=== PATIENT | female | born 1985 | race Caucasian/White ===

== ENCOUNTER 2017-02-10 17:31 | Emergency (ER) | payer SELFPAY ==
[2017-02-10 17:48] VITALS: BMI 24.8
[2017-02-10 17:50] VITALS: BP 104/71; PULSE 70; RESP 16; TEMP 98.7; O2SAT 99
[2017-02-10] MEDS ORDERED: Sodium Chloride 0.9% 1,000 ML IV STA (18:03)
[2017-02-10 18:23] LABS: ADD MANUAL DIFF? NO
[2017-02-10 18:42] LABS: ALKALINE PHOSPHATASE 67 U/L (38-133); ALT/SGPT 26 U/L (7-56); AMYLASE 64 U/L (35-125); AST/SGOT 23 U/L (15-39); BILIRUBIN,TOTAL 0.8 mg/dL (0.2-1.3); BLOOD UREA NITROGEN 4 mg/dL (7-21); CARBON DIOXIDE 25 mmol/L (21-33); CHLORIDE 101 mmol/L (98-107); GFR AFRICAN-AMERICAN > 60; GLUCOSE,RANDOM 86 mg/dL (70-110); LIPASE 62 U/L (23-300); POTASSIUM 3.9 mmol/L (3.6-5.0); SODIUM 135 mmol/L (132-148); TOTAL PROTEIN 8.4 g/dL (5.8-8.3)
--- NOTE | 2017-02-10 18:43 | ED PDOC ---
Arrival/HPI - General Chief Complaint: Abdominal Pain Time Seen by Provider: 02/10/17 18:02 Historian: Patient - History of Present Illness Narrative History of Present Illness (Text): 02/10/17 18:41 31-year-old female presents today with a one-week history of upper and lower abdominal pain with nausea no vomiting or diarrhea. No chest pain or shortness of breath. Patient states her last period was the beginning of January. Patient states she has had 3 pregnancies in the past. She is unsure if she is at current time. She denies vaginal bleeding or vaginal discharge. No fevers or chills. Complaining of urinary frequency occasionally. No other complaints Past Medical History - Provider Review Nursing Documentation Reviewed: Yes - Travel History Have you recently traveled outside [place] w/in the past 3 mons?: No - Past History Past History: No Previous - Infectious Disease Hx of Infectious Diseases: None - Tetanus Immunization Tetanus Immunization: Unknown - Cardiac Hx Cardiac Disorders: No - Pulmonary Hx Respiratory Disorders: No - Neurological Hx Neurological Disorder: No - HEENT Hx HEENT Disorder: No - Renal Hx Renal Disorder: No - Endocrine/Metabolic Hx Endocrine Disorders: No - Hematological/Oncological Hx Blood Disorders: No - Integumentary Hx Dermatological Disorder: No - Musculoskeletal/Rheumatological Hx Musculoskeletal Disorders: No - Gastrointestinal Hx Gastrointestinal Disorders: Yes Hx Gall Bladder Disease: Yes - Genitourinary/Gynecological Hx Genitourinary Disorders: No - Psychiatric Hx Psychophysiologic Disorder: No Hx Substance Use: No - Anesthesia Hx Anesthesia: No Hx Anesthesia Reactions: No Hx Malignant Hyperthermia: No Family/Social History - Physician Review Nursing Documentation Reviewed: Yes Family/Social History: Unknown Family HX Smoking Status: Never Smoked Hx Alcohol Use: No Hx Substance Use: No Allergies/Home Meds Allergies/Adverse Reactions: Allergies No Known Allergies Allergy (Verified 08/01/15 09:37) Review of Systems - Review of Systems Constitutional: absent: Fatigue, Fevers Respiratory: absent: SOB, Cough Cardiovascular: absent: Chest Pain, Palpitations Gastrointestinal: Abdominal Pain, Nausea. absent: Constipation, Diarrhea, Vomiting Genitourinary Female: Dysuria, Frequency. absent: Urine Output Changes, Vaginal Bleeding, Vaginal Discharge Musculoskeletal: Back Pain. absent: Arthralgias, Neck Pain Skin: absent: Rash, Pruritis Neurological: absent: Headache Psychiatric: absent: Anxiety Physical Exam Vital Signs Reviewed: Yes Vital Signs Temp Pulse Resp BP Pulse Ox 02/10/17 17:48 98.7 F 70 16 104/71 99 Temperature: Afebrile Blood Pressure: Normal Pulse: Regular Respiratory Rate: Normal Appearance: Positive for: Well-Appearing, Non-Toxic, Comfortable Pain Distress: None Mental Status: Positive for: Alert and Oriented X 3 - Systems Exam Head: Present: Atraumatic Neck: Present: Normal Range of Motion Respiratory/Chest: Present: Clear to Auscultation, Good Air Exchange. No: Respiratory Distress, Accessory Muscle Use Cardiovascular: Present: Regular Rate and Rhythm, Normal S1, S2. No: Murmurs Abdomen: Present: Tenderness (minimal lower abdominal tenderness. ), Normal Bowel Sounds. No: Distention, Peritoneal Signs, Rebound, Guarding Genitourinary/Pelvic Exam: Present: Normal External Genitalia, Cervical os Closed, Other (chaparoned by cyndee chan). No: Vaginal Discharge, Vaginal Bleeding, Vaginal Lesions, Adenexal Tenderness, Adenexal Mass, Cervical Motion Tendernes, Odor Back: Present: Normal Inspection. No: CVA Tenderness, Midline Tenderness, Paraspinal Tenderness Upper Extremity: Present: Normal Inspection Neurological: Present: GCS=15 Skin: Present: Warm, Dry, Normal Color. No: Rashes Psychiatric: Present: Alert, Oriented x 3 Medical Decision Making ED Course and Treatment: 02/10/17 18:43 Patient is nontoxic well appearing in no distress. Vital signs are stable. Patient presented with a one-week history of abdominal pain with nausea and no vomiting or diarrhea test is positive in the emergency room CBC: wnl CMP: wnl Beta hC TYPE AND SCREEN: O+ Urinalysis: small leukocytes, bacteria, Ultrasound: FINDINGS: Uterus: Measures 12.5 x 5.7 x 9 cm. Single intrauterine gestation identified. pole and yolk sac are seen. Estimated gestational age is 9 weeks, 4 days, based on the crown rump length. heart motion visualized, at 164 beats per minute. [place]-shaped hypoechoic area seen adjacent to the gestational sac, suspicious for a subchorionic hemorrhage. This measures up to 1.4 x 0.4 x 1.1 cm in size. Cervix appears closed. Right ovary: Within normal limits in appearance, containing multiple follicles. Measures 2.7 x 2.3 x 2.0 cm. Flow seen in the right ovary on color and Doppler imaging, with no evidence of torsion. Left ovary: Within normal limits in appearance, containing multiple follicles. Measures 3.1 2.3 x 1.8 cm. Flow seen in the left ovary on color and Doppler imaging, with no evidence of torsion. Cul de sac: None seen. IMPRESSION: 9 week, 4 day intrauterine with heart motion. Subchorionic hemorrhage identified. Followup is recommended. Discussed all the results the patient. advised f/u with the retort furnace helper within the next 2 days. advised immediate return if symptoms worsen,persist or if new symptoms develop. all information translated using airport attendant dictaphone mechanic # [id number]; patient is currently taking vitamins and she was advised to continue to do so. She was advised to return immediately if abdominal pain worsens or she developed vaginal bleeding. Patient verbalizes understanding of discharge instructions and need for immediate followup. Impression: threatened Tylenol every 4 hours as needed for pain Increase fluids Followup with the eye dropper assembler within the next 2 days nitrofurantoin; 1 tablet twice daily x 10 days. Return immediately if symptoms worsen persist or if new symptoms develop: High fevers, heavy bleeding, severe abdominal pain, vomiting, diarrhea, dizziness or weakness or any other concerning symptoms develop. - Lab Interpretations Lab Results: 02/10/17 18:00 02/10/17 18:00 Lab Results 02/10/17 18:48: Blood Type O POSITIVE, Antibody Screen Negative, BBK History Checked Patient has bt 02/10/17 18:00: WBC 9.8 D, RBC 4.45, Hgb 13.3, Hct 38.8, MCV 87.2, MCH 29.9, MCHC 34.3, RDW 13.1, Plt Count 335, MPV 9.8, Gran % 65.0, Lymph % (Auto) 25.6, Elbert % (Auto) 5.8, Eos % (Auto) 3.4, Baso % (Auto) 0.2, Gran # 6.39, Lymph # 2.5 , Elbert # 0.6, Eos # 0.3, Baso # 0.02, Sodium 135, Potassium 3.9, Chloride 101, Carbon Dioxide 25, Anion Gap 13, BUN 4 L, Creatinine 0.4 L, Est GFR ( Amer) > 60, Est GFR (Non-Af Amer) > 60, Random Glucose 86, Calcium 9.0, Total Bilirubin 0.8, AST 23, ALT 26, Alkaline Phosphatase 67, Total Protein 8.4 H, Albumin 4.2, Globulin 4.2, Albumin/Globulin Ratio 1.0 L, Amylase 64, Lipase 62, Beta HCG, Quant 84540.00 H, Urine Color Yellow, Urine Appearance Clear, Urine pH 6.0, Ur Specific Miller 1.010, Urine Protein Negative, Urine Glucose (UA) Negative, Urine Ketones Negative, Urine Blood Trace-intact H, Urine Nitrate Negative, Urine Bilirubin Negative, Urine Urobilinogen 0.2, Ur Leukocyte Esterase Small H, Urine RBC 0 - 2, Urine WBC 0 - 2, Ur Epithelial Cells 3 - 4, Urine Bacteria Small - RAD Interpretation Radiology Orders: 02/10/17 18:14 OB TRANSVAGINAL [US] Stat - Medication Orders Current Medication Orders: Discontinued Medications Acetaminophen (Tylenol 325mg Tab) 975 mg PO STAT STA Stop: 02/10/17 21:34 Last Admin: 02/10/17 21:34 Dose: 975 MG MAR Pain/Vitals Document 02/10/17 21:34 SE (Rec: 02/10/17 21:35 SE [id number]) Pain Reassessment Is This A Pain ReAssessment? No Sleep Is patient sleeping during reassessment? No Presence of Pain Presence of Pain Yes Location Pain Location Body Site Abdomen Sodium Chloride (Sodium Chloride 0.9%) 1,000 mls @ 999 mls/hr IV .Q1H1M STA Stop: 02/10/17 19:03 Last Admin: 02/10/17 18:17 Dose: 999 MLS/HR eMAR Start Stop Document 02/10/17 18:17 SE (Rec: 02/10/17 18:17 SE [id number]) Intravenous Solution Start Date 02/10/17 Start Time 18:17 Disposition/Present on Arrival - Present on Arrival Any Indicators Present on Arrival: No History of DVT/PE: No History of Uncontrolled Diabetes: No Urinary Catheter: No History of Decub. Ulcer: No History Surgical Site Infection Following: None - Disposition Have Diagnosis and Disposition been Completed?: Yes Diagnosis: Threatened , Subchorionic hemorrhage, Urinary tract infection Disposition: HOME/ ROUTINE Disposition Time: 20:25 Patient Plan: Discharge Condition: GOOD Discharge Instructions (ExitCare): Urinary Tract Infection in (ED), Threatened Miscarriage (ED) Print Language: SLOVENIAN Additional Instructions: Tylenol every 4 hours as needed for pain Nitrofurantoin; twice daily x 10 days continue vitamins Increase fluids Followup with the eye dropper assembler within the next 2 days Return immediately if symptoms worsen persist or if new symptoms develop: High fevers, heavy bleeding, severe abdominal pain, vomiting, diarrhea, dizziness or weakness or any other concerning symptoms develop. Prescriptions: Nitrofurantoin Macrocrystals [Macrobid] 100 mg PO BID #20 cap Referrals: Alyson Dotson, [Primary Care Provider] - Follow up with primary Charles Moe [Medical Doctor] - [facility]] - Follow up with primary Britton Santiago MD [Staff Provider] - Follow up with primary Forms: WORK NOTE
[2017-02-10 19:07] LABS: URINE BILIRUBIN NEGATIVE (NEGATIVE); URINE BLOOD TRACE-INTACT (NEGATIVE); URINE GLUCOSE (UA) NEGATIVE (NEGATIVE); URINE KETONE NEGATIVE (NEGATIVE); URINE LEUKOCYTE ESTERASE SMALL Leu/uL (NEGATIVE); URINE PROTEIN NEGATIVE mg/dL (<30 mg/dL); URINE UROBILINOGEN 0.2 E.U./dL (<1 E.U./dL)
[2017-02-10 19:08] LABS: BASO # 0.02 K/mm3 (0.0-2.0); BASO % 0.2 % (0.0-3.0); EOS # 0.3 (0.0-0.7); EOS % 3.4 % (1.5-5.0); GRAN # 6.39 (1.4-6.5); HEMATOCRIT 38.8 % (36.0-48.0); LYMPH # 2.5 (1.2-3.4); LYMPH % 25.6 % (22.0-35.0); MEAN CELL VOLUME 87.2 fL (80.0-105.0); MEAN CORPUSCULAR HEMOGLOBIN 29.9 pg (25.0-35.0); MEAN CORPUSCULAR HGB CONC 34.3 g/dl (31.0-37.0); MEAN PLATELET VOLUME 9.8 fl (7.0-11.0); MONO # 0.6 (0.1-0.6); MONO % 5.8 % (1.0-6.0); PLATELET COUNT 335 10^3/uL (120.0-450.0); RED CELL DISTRIBUTION WIDTH 13.1 % (11.5-14.5); WHITE BLOOD COUNT 9.8 10^3/ul (4.5-11.0)
[2017-02-10 19:21] LABS: URINE APPEARANCE CLEAR (CLEAR); URINE COLOR YELLOW (YELLOW)
[2017-02-10 19:37] LABS: URINE RBC 0 - 2 /hpf (0-2); URINE WBC 0 - 2 /hpf (0-6)
[2017-02-10 19:38] LABS: URINE BACTERIA SMALL (NEG)
--- NOTE | 2017-02-10 19:48 | US ---
EXAM: US First Trimester, Transabdominal US , Transvaginal CLINICAL HISTORY: 31 years old, female; Pain; Other: ; Gestational age or lmp: 01/02/2017; Additional info: Abd pain/nausea TECHNIQUE: Real-time transabdominal and transvaginal obstetrical ultrasound of the maternal pelvis and a first trimester with image documentation. Transvaginal imaging was used for better evaluation of the fetus and adnexa. EXAM DATE/TIME: 02/10/2017 6:14 PM COMPARISON: No relevant prior studies available. FINDINGS: Uterus: Measures 12.5 x 5.7 x 9 cm. Single intrauterine gestation identified. pole and yolk sac are seen. Estimated gestational age is 9 weeks, 4 days, based on the crown rump length. heart motion visualized, at 164 beats per minute. [place]-shaped hypoechoic area seen adjacent to the gestational sac, suspicious for a subchorionic hemorrhage. This measures up to 1.4 x 0.4 x 1.1 cm in size. Cervix appears closed. Right ovary: Within normal limits in appearance, containing multiple follicles. Measures 2.7 x 2.3 x 2.0 cm. Flow seen in the right ovary on color and Doppler imaging, with no evidence of torsion. Left ovary: Within normal limits in appearance, containing multiple follicles. Measures 3.1 2.3 x 1.8 cm. Flow seen in the left ovary on color and Doppler imaging, with no evidence of torsion. Cul de sac: None seen. IMPRESSION: 9 week, 4 day intrauterine with heart motion. Subchorionic hemorrhage identified. Followup is recommended. See above for remaining findings.
== END 2017-02-10 21:36 | disposition home or self-care (01) ==
LOC: ED 17:31
DX: O20.0 Threatened abortion (principal); O23.41 Unspecified infection of urinary tract in pregnancy, first trimester; Z3A.09 9 weeks gestation of pregnancy
CPT/HCPCS: 76817; 80053; 81001; 82150; 83690; 84702; 85025; 86850; 86900; 87086; 99284; J7040